=== PATIENT | female | born 1940 | race Caucasian/White ===

== ENCOUNTER 2017-04-07 16:37 | Emergency (ER) | payer MEDICARE, BC ==
[2017-04-07] MEDS: ACETAMINOPHEN 325 MG TAB PO ONE (17:31)
--- NOTE | 2017-04-07 17:31 | Emergency Department Record ---
History of Present Illness - General Chief Complaint: Fall Injury Stated Complaint: FELL ON BARN FLOOR HIT FACE Time Seen by Provider: 04/07/17 16:46 Source: RN Mode of Arrival: Ambulatory Limitations: No limitations - History of Present Illness Initial Comments: 77 yo female presents after a trip and fall in her barn. She was walking on stone and tripped hitting her head and nose. No LOC. No current anticoagulants. No neck,chest, abdominal or back pain. Her left knee hurts mildly but she weight bears without pain. MD Complaint: Fall Onset/Timin -: Minutes(s) Fall From: Standing When Fall Occurred: Just prior to arrival Fall Witnessed: No Place Fall Occurred: Home Loss of Consciousness: None Prolonged Down Time?: No Symptoms Prior to Fall: None Location: Face Location - Extremities: Left: Knee Severity: Severe Quality: Aching Associated Symptoms: Denies - [place] Coma Scale Eye Response: (4) Open spontaneously Motor Response: (6) Obeys commands Verbal Response: (5) Oriented [place] Total: 15 - Related Data Home Medications Medication Instructions Recorded Confirmed Last Taken Aspirin 81 mg PO DAILY 04/07/17 04/07/17 04/07/17 Allergies Allergy/AdvReac Type Severity Reaction Status Date / Time Penicillins Allergy Unknown RASH Verified 04/07/17 17:32 Travel Screening - Travel/Exposure Within Last 30 Days Have you traveled within the last 30 days?: No Review of Systems ROS unobtainable: Due to endotracheal tube Constitutional: Denies: Chills, Fever, Malaise, Weakness Eyes: Denies: Eye discharge ENT: Denies: Congestion, Throat pain Respiratory: Denies: Cough, Dyspnea Cardiovascular: Denies: Chest pain, Palpitations, Syncope Endocrine: Denies: Fatigue Gastrointestinal: Denies: Abdominal pain, Diarrhea, Nausea, Vomiting Genitourinary: Denies: Dysuria, Urgency Musculoskeletal: Reports: Arthralgia. Denies: Back pain, Joint swelling, Myalgia, Neck pain Skin: Reports: Bruising Neurological: Reports: Headache. Denies: Numbness, Tremors, Weakness Psychiatric: Denies: Anxiety Hematological/Lymphatic: Denies: Blood Clots, Easy bleeding, Easy bruising, Swollen glands Past Medical History - SOCIAL HISTORY Smoking Status: Never smoker Alcohol Use: None Drug Use: None - RESPIRATORY Hx Respiratory Disorders: No - CARDIOVASCULAR Hx Cardio Disorders: No - NEURO Hx Neuro Disorders: No - GI Hx GI Disorders: No - Hx Genitourinary Disorders: No - ENDOCRINE Hx Endocrine Disorders: Yes Hx Diabetes: Yes - MUSCULOSKELETAL Hx Musculoskeletal Disorders: No - PSYCH Hx Psych Problems: No - HEMATOLOGY/ONCOLOGY Hx Hematology/Oncology Disorders: Yes Hx Cancer: Yes (non hodgkins lymphoma) Hx Chemotherapy: Yes Family Medical History Any Significant Family History?: No Physical Exam - General General Appearance: Alert Limitations: No limitations - Head Head exam: negative: Atraumatic, Normal inspection Head exam detail: Abrasion, Contusion, Hematoma Image of Face/Head: 1 - swelling above left eye. no laceration 2 - laceration - Eye Eye exam: Normal appearance, PERRL, Periorbital swelling, Periorbital tenderness. negative: Conjunctival injection, Scleral icterus - ENT ENT exam: Normal exam Ear exam: Normal external inspection Nasal Exam: Other (contusion). negative: Dried blood Mouth exam: Normal external inspection Teeth exam: Normal inspection Throat exam: Normal inspection. negative: Tonsillar erythema, Tonsillar exudate - Neck Neck exam: Normal inspection - Respiratory Respiratory exam: Accessory muscle use, Decreased breath sounds, Prolonged expiratory, Respiratory distress - Cardiovascular Cardiovascular Exam: Regular rate, Normal rhythm, Normal heart sounds - GI/Abdominal GI/Abdominal exam: Soft. negative: Distended, Guarding, Rebound, Tenderness - Rectal Rectal exam: Deferred - exam: Deferred - Extremities Extremities exam: Normal inspection, Full ROM, Tenderness (mild anterior left knee) - Back Back exam: Reports: Normal inspection, Full ROM - Neurological Neurological exam: Abnormal gait, Altered, CN II-XII intact. negative: Motor sensory deficit - Psychiatric Psychiatric exam: Normal affect, Normal mood - Skin Skin exam: Dry, Intact, Normal color, Warm. negative: Erythema Course Vital Signs 04/07/17 16:55 Temperature 99.0 F Pulse Rate 112 H Respiratory 18 Rate Blood Pressure 150/70 Pulse Ox 96 - Reevaluation(s) Reevaluation #1: The CT scan of the head and cervical spine were negative for acute injury The knee demonstrates small effusion no fracture The nose was cleaned and irrigated. No FB The superficial laceration was well approximated with steri strips 04/07/17 18:29 Disposition Disposition: Discharge Clinical Impression: Forehead contusion Qualifiers: Encounter type: initial encounter Qualified Code(s): S00.83XA - Contusion of other part of head, initial encounter Nasal laceration Qualifiers: Encounter type: initial encounter Qualified Code(s): S01.21XA - Laceration without foreign body of nose, initial encounter Disposition: Home, Self-Care Condition: (1) Good Instructions: Laceration (ED), Head Injury (ED) Additional Instructions: Ice the forehead every 6 hours Expect increased bruising and some swelling Return or be seen if you have pain, dizzy, headaches ice the knee if any swelling Forms: Patient Portal Access Time of Disposition: 18:32 Quality - Quality Measures Quality Measures: N/A - Blood Pressure Screening Does Patient Have Any of the Following: No Blood Pressure Classification: Hypertensive Reading Systolic Measurement: 150 Diastolic Measurement: 70 Screening for High Blood Pressure: < Pre-Hypertensive BP, F/U Documented > [ G8950] Pre-Hypertensive Follow-up Interventions: Referral to alternative/primary care provider.
[2017-04-07] MEDS ORDERED: FENTANYL PF 100MCG/2ML VIAL IVP ONE (17:32)
[2017-04-07] MEDS ORDERED: MIDAZOLAM HCL 50 MG in 0.9 % SODIUM CHLORIDE 100ML 100 ML IVPB SCH (17:45)
[2017-04-07] MEDS: Diph,Pert(Acell),Tet Vac 0.5 ML SYR IM ONE (18:34)
--- NOTE | 2017-04-09 08:48 | CT SCAN REPORT ---
EXAM: CT OF THE BRAIN WITHOUT CONTRAST HISTORY: INJURY. TECHNIQUE: Sequential axial images were obtained from the foramen magnum to the vertex without contrast administration. FINDINGS: There are dystrophic calcifications within the basal ganglia and cerebellum. No intracranial abnormality is appreciated. There is a large left frontal scalp hematoma. There is pansinus disease. The mastoid air cells appear normal. IMPRESSION: 1. NO ACUTE INTRACRANIAL ABNORMALITY IS APPRECIATED. LEFT FRONTAL SCALP HEMATOMA. 2. BENIGN CALCIFICATIONS IN THE BASAL GANGLIA AND CEREBELLUM. 3. PANSINUS DISEASE. JOB NUMBER: [id number] [facility]
--- NOTE | 2017-04-09 08:54 | CT SCAN REPORT ---
EXAM: CT OF THE CERVICAL SPINE WITHOUT CONTRAST HISTORY: FALL. TECHNIQUE: Sequential axial images were obtained through the cervical spine without intravenous contrast administration. Sagittal and coronal reformatted images were performed. FINDINGS: There is osteopenia and severe multilevel degenerative change. Findings are most pronounced at C5-C6 and C6-C7 levels. There is central canal stenosis and bilateral neural foraminal narrowing at these levels. No evidence of fracture, subluxation, or perched facet. IMPRESSION: 1. OSTEOPENIA WITH MULTILEVEL DEGENERATIVE CHANGE. FINDINGS ARE MOST PRONOUNCED AT THE C5-C6 AND C6-C7 LEVELS. 2. PANSINUS DISEASE IS ALSO NOTED. JOB NUMBER: [id number] [facility]
--- NOTE | 2017-04-09 08:57 | RADIOLOGY REPORT ---
EXAM: LEFT KNEE HISTORY: INJURY. TECHNIQUE: AP and lateral views of the left knee were performed. FINDINGS: There is severe osteopenia. There is compartmental disease in the medial compartment. There is a joint effusion. There is peripheral vascular disease. No definitive fracture. IMPRESSION: 1. SMALL SUPRAPATELLAR JOINT EFFUSION. UNDERLYING OSTEOPENIA. DEGENERATIVE CHANGE IN THE MEDIAL COMPARTMENT. 2. PERIPHERAL VASCULAR DISEASE. JOB NUMBER: [id number] [facility]
== END 2017-04-07 19:15 | disposition home or self-care (01) ==
LOC: ER 16:37
DX: S00.83XA Contusion of other part of head, initial encounter (principal); S01.21XA Laceration without foreign body of nose, initial encounter; M25.562 Pain in left knee; W01.0XXA Fall on same level from slipping, tripping and stumbling without subsequent striking against object, initial encounter; Y92.71 Barn as the place of occurrence of the external cause
CPT/HCPCS: 70450; 72125; 90715; 96372; 99283; 99284

== ENCOUNTER 2018-05-14 19:59 | Emergency (ER) | payer MEDICARE ==
--- NOTE | 2018-05-14 20:19 | Emergency Department Record ---
History of Present Illness - General Chief Complaint: Fall Injury Stated Complaint: FALL INJURY Time Seen by Provider: 05/14/18 20:11 Source: Patient, Family Mode of Arrival: Ambulatory Limitations: No limitations - History of Present Illness Initial Comments: Pt to ED by private car with daughter after a slip and fall in her daughters driveway. Pt fell hitting her head on a "block". She had no LOC, no neck pain , no injury to the shoulders, elbows, hips, or knees. Up and ambulatory. Pt takes an asprin every morning. No other blood thinners. MD Complaint: Fall Onset/Timin -: Minutes(s) Fall From: Standing When Fall Occurred: Just prior to arrival Fall Witnessed: No Place Fall Occurred: Home Loss of Consciousness: None Prolonged Down Time?: No Symptoms Prior to Fall: None Location: Head Severity: Moderate Severity scale (1-10): 4 Quality: Aching Context: Tripped/slipped Associated Symptoms: Denies - [place] Coma Scale Eye Response: (4) Open spontaneously Motor Response: (6) Obeys commands Verbal Response: (5) Oriented [place] Total: 15 - Related Data Allergies Allergy/AdvReac Type Severity Reaction Status Date / Time Penicillins Allergy Unknown RASH Verified 04/07/17 17:32 Travel Screening - Travel/Exposure Within Last 30 Days Have you traveled within the last 30 days?: No - Travel Symptoms Symptom Screening: None Review of Systems Constitutional: Denies: Chills, Fever, Weakness Eyes: Denies: Eye discharge, Vision change ENT: Denies: Congestion, Ear pain Respiratory: Denies: Cough, Dyspnea Cardiovascular: Denies: Arrhythmia, Chest pain Endocrine: Denies: Fatigue Gastrointestinal: Denies: Abdominal pain, Nausea, Vomiting Musculoskeletal: Denies: Arthralgia, Back pain, Joint swelling Skin: Denies: Bruising Neurological: Denies: Abnormal gait, Headache, Numbness, Weakness Psychiatric: Denies: Anxiety Hematological/Lymphatic: Denies: Anemia Past Medical History - SOCIAL HISTORY Smoking Status: Never smoker Alcohol Use: None Drug Use: None - RESPIRATORY Hx Respiratory Disorders: No - CARDIOVASCULAR Hx Cardio Disorders: No - NEURO Hx Neuro Disorders: No - GI Hx GI Disorders: No - Hx Genitourinary Disorders: No - ENDOCRINE Hx Endocrine Disorders: Yes Hx Diabetes: Yes - MUSCULOSKELETAL Hx Musculoskeletal Disorders: No - PSYCH Hx Psych Problems: No - HEMATOLOGY/ONCOLOGY Hx Hematology/Oncology Disorders: Yes Hx Cancer: Yes (non hodgkins lymphoma) Hx Chemotherapy: Yes Family Medical History Any Significant Family History?: No Physical Exam - General General Appearance: Alert, Oriented x3, Cooperative, No acute distress - Head Head exam: Normocephalic Head exam detail: Abrasion. negative: Colin's sign, CSF otorrhea, CSF rhinorrhea, Laceration (abrasion to the crown of the head with local swelling, no depression of the scalp to palpation. No laceration. ) - Eye Eye exam: Normal appearance, EOMI Pupils: Miosis - ENT ENT exam: Normal exam, Mucous membranes moist, Normal external ear exam, Normal orophraynx, TM's normal bilaterally - Neck Neck exam: Normal inspection, Full ROM. negative: Tenderness - Respiratory Respiratory exam: Normal lung sounds bilaterally. negative: Chest wall tenderness, Wheezes - Cardiovascular Cardiovascular Exam: Regular rate, Normal rhythm. negative: Tachycardia Peripheral Pulses: 2+: Radial (R), Radial (L) - GI/Abdominal GI/Abdominal exam: Soft, Normal bowel sounds. negative: Guarding, Tenderness - Rectal Rectal exam: Deferred - exam: Deferred - Extremities Extremities exam: Normal inspection, Full ROM, Pedal edema. negative: Joint swelling, Tenderness - Back Back exam: Reports: Normal inspection, Full ROM. Denies: Paraspinal tenderness , Tenderness - Neurological Neurological exam: Alert, Normal gait, Oriented X3. negative: Motor sensory deficit - Psychiatric Psychiatric exam: Normal affect, Normal mood - Skin Skin exam: Normal color. negative: Rash Type of lesion: abrasion Distribution of rash: Head Course Vital Signs 05/14/18 20:03 Temperature 97.6 F Pulse Rate 120 H Respiratory 12 Rate Blood Pressure 147/75 Pulse Ox 99 - Reevaluation(s) Reevaluation #1: 05/14/18 21:00 CT neg per radiologist. Exam unchanged. Pt and doaughter comfortable with home. Daughter will stay with pt tonight. Disposition Disposition: Discharge Clinical Impression: Fall, Scalp abrasion Disposition: Home, Self-Care Condition: (2) Stable Instructions: Fall Prevention for Older Adults (ED), Abrasion (ED), Head Injury (ED) Additional Instructions: Ice to area. No asprin or non steroidals tonight. Forms: Patient Portal Access Time of Disposition: 21:00 Quality - Quality Measures Quality Measures: N/A - Blood Pressure Screening Does Patient Have Any of the Following: No Blood Pressure Classification: Hypertensive Reading Systolic Measurement: 147 Diastolic Measurement: 75 Screening for High Blood Pressure: < Pre-Hypertensive BP, F/U Documented > [ G8950] Pre-Hypertensive Follow-up Interventions: Follow-up with rescreen every year.
--- NOTE | 2018-05-16 18:39 | CT SCAN REPORT ---
EXAM: CT SCAN HEAD WO CONTRAST HISTORY: PATIENT TRIPPED OUTSIDE DAUGHTER'S HOME 20 MINUTES AGO HITTING LEFT SIDE OF HEAD. TECHNIQUE: Axial CT scan of the head performed without IV contrast. COMPARISON: Head CT dated 04/07/17. ENCOUNTER: Initial. FINDINGS: No definite acute intracranial hemorrhage identified. No focal mass effect or midline shift apparent. Moderate generalized atrophy. Chronic- appearing deep white matter changes, nonspecific but likely representing some chronic small vessel deep white matter ischemic disease. No definite acute infarct or intracranial mass lesion seen. Prominent basal ganglia calcification and some mild cerebellar calcification, as before. Air fluid levels in both maxillary sinuses have progressed from the prior study. Clinical correlation as to acute sinusitis suggested. There is probably a small air fluid level in the right sphenoid sinus as well and prominent opacification in the ethmoids bilaterally with mild membrane thickening in the frontal sinuses. No depressed calvarial fracture evident. IMPRESSION: 1. NO DEFINITE ACUTE INTRACRANIAL HEMORRHAGE OR FOCAL MASS EFFECT EVIDENT. 2. GENERALIZED ATROPHY WITH CHRONIC-APPEARING DEEP WHITE MATTER CHANGES, BEFORE. 3. PROMINENT BASAL GANGLIA CALCIFICATION AND MILD CEREBELLAR CALCIFICATIONS, BEFORE. 4. AIR FLUID LEVELS IN BOTH MAXILLARY SINUSES WITH OPACIFICATION ELSEWHERE IN THE PARANASAL SINUSES, DETAILED ABOVE. CLINICAL CORRELATION TO SINUSITIS SUGGESTED. JOB NUMBER: [id number] [facility]
== END 2018-05-14 21:13 | disposition home or self-care (01) ==
LOC: ER 19:59
DX: S00.01XA Abrasion of scalp, initial encounter (principal); E11.9 Type 2 diabetes mellitus without complications; Z79.4 Long term (current) use of insulin; W01.198A Fall on same level from slipping, tripping and stumbling with subsequent striking against other object, initial encounter; Y92.008 Other place in unspecified non-institutional (private) residence as the place of occurrence of the external cause
CPT/HCPCS: 70450; 99283

== ENCOUNTER 2018-07-16 15:07 | Emergency (ER) | payer MEDICARE ==
--- NOTE | 2018-07-16 15:30 | Emergency Department Record ---
History of Present Illness - General Chief Complaint: Cough Stated Complaint: COUGH Time Seen by Provider: 07/16/18 15:15 Source: Patient - History of Present Illness Initial Comments: The patient was sent her from [facility] because she is having shortness of breth and a cough. per [facility], she had a DVT on 06-07-18, and was given lovenox which ran out and she has not filled it since. She has Non Hodgkins lymphoma and is being cared for by Dr. Brown oncologist. She is sent here for a CT scan to evaluate for PE. She had a CXR at [facility] which was read as normal. The family states that she tripped over a dog toy this morning at 730 and bumped her right chest into a dresser. She states she had an xray of her chest and back at [facility] which was read as negative. She is in agreement with CTA, denies contrast allergy or kidney problems. - Related Data Allergies Allergy/AdvReac Type Severity Reaction Status Date / Time Penicillins Allergy Unknown RASH Unverified 07/16/18 12:52 Review of Systems Reviewed: No additional complaints except as noted below Constitutional: Reports: As per HPI. Denies: Chills, Fever, Malaise, Night sweats, Weakness, Weight change Eyes: Reports: As per HPI. Denies: Eye discharge, Eye pain, Photophobia, Vision change ENT: Reports: As per HPI. Denies: Congestion, Dental pain, Ear pain, Epistaxis , Hearing loss, Throat pain Respiratory: Reports: As per HPI. Denies: Cough, Dyspnea, Hemoptysis, Stridor, Wheezes Cardiovascular: Reports: As per HPI. Denies: Arrhythmia, Chest pain, Dyspnea on exertion, Edema, Murmurs, Orthopnea, Palpitations, Paroxysmal nocturnal dyspnea, Rheumatic Fever, Syncope Endocrine: Reports: As per HPI. Denies: Fatigue, Heat or cold intolerance, Polydipsia, Polyuria Gastrointestinal: Reports: As per HPI. Denies: Abdominal pain, Constipation, Diarrhea, Hematemesis, Hematochezia, Melena, Nausea, Vomiting Genitourinary: Reports: As per HPI. Denies: Abnormal menses, Discharge, Dyspareunia, Dysuria, Frequency, Hematuria, Incontinence, Retention, Urgency Musculoskeletal: Reports: As per HPI. Denies: Arthralgia, Back pain, Gout, Joint swelling, Myalgia, Neck pain Skin: Reports: As per HPI. Denies: Bruising, Change in color, Change in hair/ nails, Lesions, Pruritus, Rash Neurological: Reports: As per HPI. Denies: Abnormal gait, Confusion, Headache, Numbness, Paresthesias, Seizure, Tingling, Tremors, Vertigo, Weakness Psychiatric: Reports: As per HPI. Denies: Anxiety, Auditory hallucinations, Depression, Homicidal thoughts, Suicidal thoughts, Visual hallucinations Hematological/Lymphatic: Reports: As per HPI. Denies: Anemia, Blood Clots, Easy bleeding, Easy bruising, Swollen glands Past Medical History - SOCIAL HISTORY Smoking Status: Never smoker Drug Use: None - RESPIRATORY Hx Respiratory Disorders: No - CARDIOVASCULAR Hx Cardio Disorders: No - NEURO Hx Neuro Disorders: No - GI Hx GI Disorders: No - Hx Genitourinary Disorders: No - ENDOCRINE Hx Endocrine Disorders: Yes Hx Diabetes: Yes - MUSCULOSKELETAL Hx Musculoskeletal Disorders: No - PSYCH Hx Psych Problems: No - HEMATOLOGY/ONCOLOGY Hx Hematology/Oncology Disorders: Yes Hx Cancer: Yes (non hodgkins lymphoma) Hx Chemotherapy: Yes Physical Exam - General General Appearance: Alert, Oriented x3, Cooperative, No acute distress, Other ( cachectic) - Head Head exam: Normal inspection - Eye Eye exam: Normal appearance, PERRL, EOMI. negative: Conjunctival injection, Nystagmus Pupils: Normal accommodation - ENT ENT exam: Normal exam, Mucous membranes moist, Normal external ear exam, Normal orophraynx, TM's normal bilaterally Ear exam: Normal external inspection. negative: External canal tenderness Nasal Exam: Normal inspection. negative: Discharge, Sinus tenderness Mouth exam: Normal external inspection, Tongue normal Teeth exam: Normal inspection. negative: Dental caries Throat exam: Normal inspection. negative: Tonsillar erythema, Tonsillar exudate - Neck Neck exam: Normal inspection, Full ROM. negative: Tenderness - Respiratory Respiratory exam: Normal lung sounds bilaterally, Prolonged expiratory, Other ( kyphosis, distan breath sounds no evident respiratory distress.). negative: Accessory muscle use, Chest wall tenderness, Respiratory distress - Cardiovascular Cardiovascular Exam: Regular rate, Normal rhythm, Normal heart sounds - GI/Abdominal GI/Abdominal exam: Soft, Normal bowel sounds. negative: Tenderness - Rectal Rectal exam: Deferred - exam: Deferred - Extremities Extremities exam: Normal inspection, Full ROM, Normal capillary refill. negative: Calf tenderness, Tenderness - Back Back exam: Reports: Normal inspection, Full ROM. Denies: CVA tenderness (R), CVA tenderness (L), Muscle spasm, Rash noted, Tenderness - Neurological Neurological exam: Alert, CN II-XII intact, Normal gait, Oriented X3, Reflexes normal. negative: Motor sensory deficit - Psychiatric Psychiatric exam: Normal affect, Normal mood - Skin Skin exam: Dry, Intact, Normal color, Warm, Other (dry flakey skin diffusely) Course - Reevaluation(s) Reevaluation #1: Multiple attempts by staff to establish an IV were unsuccessful. Patient is discouraged and wishes to go home. Long discussion with family and patient seems like VQ scan at [facility] would be reasonable and in patient's best interest. Discussed situation with Dr. Harden attending at [facility] who accepts patient in transfer for a VQ scan. Son in law and daughter and patient prefer to transport by car. 07/16/18 17:22 07/16/18 17:29 07/16/18 17:31 Medical Decision Making - Management Options MDM Management: Additional Work-up Planned (e.g. ADM/Transfer/OP Study) ( Transfer to [facility] for VQ scan) - Lab Data Result diagrams: 07/16/18 15:32 07/16/18 15:32 Disposition Disposition: Transfer Clinical Impression: Tachycardia Non-Hodgkins lymphoma Qualifiers: Non-Hodgkin lymphoma type: other specified type Lymphoma site: unspecified region Qualified Code(s): C85.80 - Other specified types of non-Hodgkin lymphoma , unspecified site Disposition: Acute Care Hospital Transfer Transfer To: [facility] Reason For Transfer: VQ scan Accepting Physician: Dr. Harden Time Discussed w/Accepting Physician: 17:31 Condition: (2) Stable Forms: Patient Portal Access Quality - Quality Measures Quality Measures: N/A - Blood Pressure Screening Does Patient Have Any of the Following: No Blood Pressure Classification: Normal BP Reading Systolic Measurement: 114 Diastolic Measurement: 71 Screening for High Blood Pressure: < Normal BP, F/U Not Required > [G8783]
== END 2018-07-16 17:50 | disposition short-term general hospital (02) ==
LOC: ER 15:07
DX: R00.0 Tachycardia, unspecified (principal); R05 Cough; C85.90 Non-Hodgkin lymphoma, unspecified, unspecified site; E11.9 Type 2 diabetes mellitus without complications; Z79.4 Long term (current) use of insulin
CPT/HCPCS: 71046; 72110; 99285